=== PATIENT | male | born 1980 | race Caucasian/White ===

== ENCOUNTER 2017-12-31 02:42 | Emergency (ER) | payer OTHER ==
[~2017-12-31] VITALS: Ht 188 cm; Wt 93.0 kg
[~2017-12-31 02:42] MED LIST: NOHOMEMEDICATIONS; NORCO 5-325 TA1 EACH PO; TOBRADEX ST EYE5 ML OP
[2017-12-31 02:56] VITALS: BP 122/78
[2017-12-31] MEDS ORDERED: ERYTHROMYCIN E3.5 G3 OPHTHALMIC (02:57)
== END 2017-12-31 03:04 | disposition home or self-care (01) ==
LOC: M.ERS 02:42
DX: H10.9 Unspecified conjunctivitis (principal)

== ENCOUNTER 2018-06-24 14:23 | Emergency (ER) | payer OTHER ==
[~2018-06-24] VITALS: Ht 188 cm; Wt 99.8 kg
[~2018-06-24 14:23] MED LIST changes: +ERYTHROMYCIN E3.5 G3 OPHTHALMIC
[2018-06-24] MEDS ORDERED: DOXYCYCLINE 10100 MG PO (14:42)
[2018-06-24 15:10] VITALS: BP 146/97
== END 2018-06-24 15:11 | disposition home or self-care (01) ==
LOC: M.ERS 14:23
DX: L08.89 Other specified local infections of the skin and subcutaneous tissue (principal)